=== PATIENT | male | born 1935 | race Caucasian/White ===

== ENCOUNTER 2017-03-16 23:22 | Inpatient (IN) | payer BC ==
[2017-03-17] MEDS ORDERED: SODIUM CHLORIDE 0.9% 1000 ML INFUS.BAG IV ONE (00:45)
[2017-03-17] MEDS ORDERED: morphine CARPU-JECT 2 MG/1 ML DISP.SYRIN IVPUSH ONE (00:46)
[2017-03-17] MEDS ORDERED: morphine CARPU-JECT 2 MG/1 ML DISP.SYRIN ONE (00:58)
[2017-03-17 01:04] LABS: URINE APPEARANCE CLEAR; URINE BILIRUBIN NEGATIVE (NEGATIVE); URINE COLOR LTYELLOW; URINE GLUCOSE (UA) 3+ (NEGATIVE); URINE KETONE TRACE (NEGATIVE); URINE LEUK ESTERASE NEGATIVE (NEGATIVE); URINE NITRITE NEGATIVE (NEGATIVE); URINE PROTEIN NEGATIVE (NEGATIVE); URINE UROBILINOGEN NEGATIVE E.U./dl (0.2-1.0)
[2017-03-17 01:08] LABS: BASOPHIL 0.4 % (0-2.0); EOSINOPHIL 0.1 % (0-4.5); MCH 28.2 pg (25.7-33.7); MCHC 32.5 g/dl (32.0-35.9); MEAN CELL VOLUME 86.7 fl (80-96); MEAN PLT VOLUME 8.3 fl (7.5-11.1); NEUTROPHILS 79.8 % (42.8-82.8); PLATELET COUNT 232 K/MM3 (134-434); RDW 13.1 % (11.9-15.9)
[2017-03-17 01:14] LABS: URINE BLOOD 2+ (NEGATIVE)
[2017-03-17 01:25] LABS: ALBUMIN 3.8 g/dl (3.4-5.0); ANION GAP 11 (8-16); BILIRUBIN,TOTAL 0.6 mg/dL (0.2-1.0); CO2 24 mmol/L (21-32); CREATININE 1.4 mg/dL (0.7-1.3); GLUCOSE,RANDOM 281 mg/dL (74-106); SGOT/AST 18 U/L (15-37); SGPT/ALT 26 U/L (12-78); TOT PROT 7.4 g/dl (6.4-8.2)
[2017-03-17 01:26] LABS: ALK PHOS 114 U/L (45-117); URINE RBC 4 /hpf (0-3); URINE WBC 1 /hpf (3-5)
--- NOTE | 2017-03-17 01:54 | PDOC ---
History of Present Illness - General Chief Complaint: Pain, Acute Stated Complaint: BACK PAIN Time Seen by Provider: 03/16/17 23:50 History Source: Patient Exam Limitations: No Limitations - History of Present Illness Initial Comments: 03/17/17 01:48 Patient is a 81 year old male with h/o kidney stone, DM, HTN, HLD, arthritis, c/ o left flank pain since 5 pm progressively worsening now 8/10, continuously pulsating. States no blood in the urine but it is dark. Took tylenol at 8 pm without relief of symptoms. He has nausea, no vomiting, no fever or chills. PMD: Androne URO: Figastsolar PMHX: as above, ALL: NKDA GENERAL/CONSTITUTIONAL: [No fever or chills. No weakness. No weight change.] HEAD, EYES, EARS, NOSE AND THROAT: [No change in vision. No ear pain or discharge. No sore throat.] CARDIOVASCULAR: [No chest pain or shortness of breath.] RESPIRATORY: [No cough, wheezing, or hemoptysis.] GASTROINTESTINAL: [No nausea, vomiting, diarrhea or constipation. No rectal bleeding.] GENITOURINARY: [No dysuria, frequency, or change in urination (+) flank pain] MUSCULOSKELETAL: (+) joint or muscle swelling or pain. No neck or back pain.] SKIN AND BREASTS: [No rash or easy bruising.] NEUROLOGIC: [No headache, vertigo, loss of consciousness, or loss of sensation.] PSYCHIATRIC: [No depression or anxiety.] ENDOCRINE: [No increased thirst. No abnormal weight change.] HEMATOLOGIC/LYMPHATIC: [No anemia, easy bleeding, or history of blood clots.] ALLERGIC/IMMUNOLOGIC: [No hives or skin allergy. No latex allergy.] GENERAL: [The patient is awake, alert, and fully oriented, in no acute distress. ] HEAD: [Normal with no signs of trauma.] EYES: [Pupils equal, round and reactive to light, extraocular movements intact, sclera anicteric, conjunctiva clear.] ENT: [Ears normal, nares patent, oropharynx clear without exudates. Moist mucous membranes.] NECK: [Normal range of motion, supple without lymphadenopathy, JVD, or masses.] LUNGS: [Breath sounds equal, clear to auscultation bilaterally. No wheezes, and no crackles.] HEART: [Regular rate and rhythm, normal S1 and S2 without murmur, rub.] ABDOMEN: [Soft, (+) tenderness in the LLQ, normoactive bowel sounds. No guarding, no rebound. No masses, (+) CVAT left EXTREMITIES: [Normal range of motion, no edema. No clubbing or cyanosis. No cords, erythema, or tenderness.] NEUROLOGICAL: [Cranial nerves II through XII grossly intact. Normal speech, normal gait.] PSYCH: [Normal mood, normal affect.] SKIN: [Warm, Dry, normal turgor, no rashes or lesions noted.] Past History - Past Medical History Allergies/Adverse Reactions: Allergies Allergy/AdvReac Type Severity Reaction Status Date / Time No Known Allergies Allergy Verified 03/16/17 23:31 Home Medications: Ambulatory Orders Diltiazem HCl [Tiazac] 300 mg PO DAILY 02/22/16 Ibuprofen 600 mg PO QID PRN #20 tablet 02/22/16 Lisinopril [Prinivil] 10 mg PO DAILY 02/22/16 Metformin HCl 500 mg PO BID 02/22/16 Ondansetron [Zofran *Odt*] 8 mg SL TID PRN #20 tab.rapdis 02/22/16 Simvastatin [Zocor -] 20 mg PO HS 02/22/16 Tamsulosin HCl [Flomax] 0.4 mg PO DAILY #14 capsule 02/22/16 Cardiac Disorders: Yes Diabetes: Yes HTN: Yes Hypercholesterolemia: Yes Kidney Stones: Yes - Psycho/Social/Smoking Cessation Hx Suicidal Ideation: No Smoking History: Never smoked Have you smoked in the past 12 months: No *Physical Exam - Vital Signs Last Vital Signs Temp Pulse Resp BP Pulse Ox 98 F 62 18 180/87 97 03/16/17 23:28 03/16/17 23:28 03/16/17 23:28 03/16/17 23:28 03/16/17 23:28 ED Treatment Course - LABORATORY CBC & Chemistry Diagram: 03/17/17 00:53 03/17/17 00:53 - ADDITIONAL ORDERS Additional order review: Laboratory Results 03/17/17 03/17/17 00:53 00:53 Sodium 134 L Potassium 4.6 Chloride 99 Carbon Dioxide 24 Anion Gap 11 BUN 24 H D Creatinine 1.4 H Creat Clearance w eGFR 48.52 Random Glucose 281 H D Calcium 9.0 Total Bilirubin 0.6 AST 18 D ALT 26 D Alkaline Phosphatase 114 D Total Protein 7.4 Albumin 3.8 Urine Color Ltyellow Urine Appearance Clear Urine pH 5.0 Urine Protein Negative Urine Glucose (UA) 3+ H Urine Ketones Trace H Urine Blood 2+ H Urine Nitrite Negative Urine Bilirubin Negative Urine Urobilinogen Negative Ur Leukocyte Esterase Negative Urine RBC 4 Urine WBC 1 03/17/17 00:53 RBC 4.49 MCV 86.7 MCHC 32.5 RDW 13.1 MPV 8.3 Neutrophils % 79.8 D Lymphocytes % 14.0 D Monocytes % 5.7 Eosinophils % 0.1 D Basophils % 0.4 - RADIOLOGY Radiology Studies Ordered: Category Date Time Status ABDOMEN & PELVIS CT W/O CONTR [CT] Stat CT Scan 03/17/17 00:47 Taken - Medications Given in the ED: ED Medications Discontinued Medications Generic Name Dose Route Start Last Admin Trade Name Freq PRN Reason Stop Dose Admin Morphine Sulfate 0.5 mg 03/17/17 00:46 03/17/17 01:02 Morphine Injection - IVPUSH 03/17/17 00:47 0.5 mg ONCE ONE Administration Medical Decision Making - Medical Decision Making 03/17/17 04:50 Patient is a 81 year old male with h/o kidney stone, DM, HTN, HLD, arthritis, c/ o left flank pain since 5 pm most consistent with renal colic. Will get labs, Dilaudid 0.5mg IV for pain, IVF 03/17/17 04:54 Laboratory Tests 03/17/17 03/17/17 03/17/17 00:53 00:53 00:53 WBC 14.0 H D Hgb 12.7 Hct 39.0 Plt Count 232 Sodium 134 L Potassium 4.6 Chloride 99 Carbon Dioxide 24 Anion Gap 11 BUN 24 H D Creatinine 1.4 H Random Glucose 281 H D Urine Color Ltyellow Urine Appearance Clear Urine pH 5.0 Ur Specific [place] Pending Urine Protein Negative Urine Glucose (UA) 3+ H Urine Ketones Trace H Urine Blood 2+ H Urine Nitrite Negative Urine Bilirubin Negative Urine Urobilinogen Negative Ur Leukocyte Esterase Negative Urine RBC 4 Urine WBC 1 Patient states still in pain but less will hold on meds for now ct abd Onsite Health Coach: ([email or web address]) Report Date: 03/17/2017 01:02:00 Report Status: Preliminary Begin of Report Content == Referring Physician: Patient Name: Leonel Cummings This is a preliminary report by imaging benefits sales consultant Exam: Noncontrast CT abdomen and pelvis Images: 505 Clinical indication: Left flank pain. Rule out stone. Findings: The lung bases are clear. The liver has a normal appearance. The gallbladder is unremarkable. The spleen and pancreas have a normal appearance. The adrenal glands are unremarkable. The right kidney has a normal unenhanced appearance. The left kidney is hydronephrotic with perinephric stranding. Proximal hydroureter is noted. An obstructing 8 x 7 mm calculus is present in the proximal left ureter (image 61). The gastrointestinal tract does not appear obstructed. No thickened or dilated bowel is seen. The appendix has a normal appearance. There is no mesenteric infiltration or free fluid. The urinary bladder, prostate and seminal vesicles are unremarkable. Tiny fat-containing left inguinal hernia is noted. No abdominal or pelvic adenopathy is seen. No lytic or blastic destructive osseous lesions are seen. Impression: Large obstructing calculus in the proximal left ureter. THIS DOCUMENT HAS BEEN ELECTRONICALLY SIGNED Chilango Forman M.D. 03/17/2017 04:55 OSMAN Felder Please call Imaging Forestry Biology Specialist [phone]) with questions 03/17/17 05:19 Case d/w with Dr. Yanick Richardson who will admit the patient to the hospital *DC/Admit/Observation/Transfer Diagnosis at time of Disposition: Renal colic on left side - Discharge Dispostion Admit: Yes - Referrals Referrals: Kevin Coleman MD [Primary Care Provider] -
[2017-03-17] MEDS: SODIUM CHLORIDE 1,000 ML IV SCH (08:06)
[2017-03-17] MEDS ORDERED: ACETAMINOPHEN 500 MG TABLET (FP) PO PRN (17:31)
[2017-03-17 19:08] VITALS: BMI 23.9
--- NOTE | 2017-03-17 20:55 | HP ---
Admitting History and Physical - Primary Care Physician PCP: Kevin Richardson - Admission Chief Complaint: left flank pain History of Present Illness: Pt. with Hx/p kidney stones, startes to have left flank pain yesterday during the day, got worse at night and came to er. He was found to have Left side hydronephrosis and ureterolithiasis. History Source: Patient Limitations to Obtaining History: No Limitations - Past Medical History Cardiovascular: Yes: HTN, Hyperlipdemia Gastrointestinal: Yes: GERD Renal/: Yes: Renal Calculi Musculoskeletal: Yes: Osteoarthritis (of both knees) Endocrine: Yes: Diabetes Mellitus - Smoking History Smoking history: Former smoker Have you smoked in the past 12 months: No If you are a former smoker, when did you quit?: 30 years ago - Alcohol/Substance Use Hx Alcohol Use: No Home Medications - Allergies Allergies/Adverse Reactions: Allergies Allergy/AdvReac Type Severity Reaction Status Date / Time No Known Allergies Allergy Verified 03/16/17 23:31 - Home Medications Home Medications: Ambulatory Orders Lisinopril [Prinivil] 10 mg PO DAILY 02/22/16 Metformin HCl 500 mg PO BID 02/22/16 Simvastatin [Zocor -] 20 mg PO HS 02/22/16 Acetaminophen [Pain Reliever] 500 mg PO Q6H PRN 03/17/17 Review of Systems - Review of Systems Constitutional: denies: Chills, Fever HENT: denies: Difficult Swallowing, Ear Discharge, Ear Pain, Epistaxis, Hearing Loss, Nasal Congestion Neck: denies: Pain on Movement, Stiffness, Tenderness Cardiovascular: denies: Chest Pain, Edema, Palpitations, Shortness of Breath Respiratory: denies: Cough, Hemoptysis, Wheezing Gastrointestinal: reports: Abdominal Pain (and left flank pain on and off). denies: Nausea, Vomiting Genitourinary: denies: Burning, Discharge, Dysuria Musculoskeletal: denies: Extremity Pain, Muscle Pain, Muscle Cramps Integumentary: denies: Erythema, Rash Neurological: denies: Change in LOC, Change in Speech, Confusion, Numbness, Tremors Endocrine: denies: Excessive Sweating, Intolerance to Cold Hematology/Lymphatic: denies: Easily Bruised, Excessive Bleeding Psychiatric: denies: Altered Sleep Pattern, Depression Physical Examination Vital Signs: Vital Signs Temperature 99 F 03/17/17 18:56 Pulse Rate 63 03/17/17 18:56 Respiratory Rate 20 03/17/17 18:56 Blood Pressure 146/80 03/17/17 18:56 O2 Sat by Pulse Oximetry (%) 97 03/17/17 16:50 Constitutional: Yes: No Distress, Calm Eyes: Yes: Conjunctiva Clear, EOM Intact, PERRL HENT: Yes: Normocephalic. No: Epistaxis, Rhinnorhea Neck: Yes: Trachea Midline. No: Lymphadenopathy Cardiovascular: Yes: Regular Rate and Rhythm, S1, S2 Respiratory: Yes: Regular, CTA Bilaterally. No: Rales Gastrointestinal: Yes: Normal Bowel Sounds, Soft. No: Palpable Mass, Tenderness ...Rectal Exam: Yes: Deferred Renal/: Yes: CVA Tenderness - Left. No: CVA Tenderness - Right Musculoskeletal: No: Back Pain, Joint Swelling Extremities: No: Cold, Cool Edema: No Integumentary: No: Erythema, Jaundice, Rash Neurological: Yes: Alert, Oriented, Other (symmetric motor and sensory function in UE/ LE/ Face) Psychiatric: Yes: Alert, Oriented Labs: reviewed Imaging - Results Cat Scan: Report Reviewed Problem List - Problems (1) Flank pain Code(s): R10.9 - UNSPECIFIED ABDOMINAL PAIN (2) Ureterolithiasis Code(s): N20.1 - CALCULUS OF URETER (3) Hydronephrosis Code(s): N13.30 - UNSPECIFIED HYDRONEPHROSIS (4) Nephrolithiasis Code(s): N20.0 - CALCULUS OF KIDNEY (5) Hypertension Code(s): I10 - ESSENTIAL (PRIMARY) HYPERTENSION (6) Diabetes mellitus Code(s): E11.9 - TYPE 2 DIABETES MELLITUS WITHOUT COMPLICATIONS Assessment/Plan Pain control IVF consult Cardio consult for clearance Hold Lisinopril. Monitor renal function AM labs
[2017-03-17] MEDS: ATORVASTATIN CA 10 MG TABLET (FP) PO SCH (21:32)
[2017-03-17] MEDS: metFORMIN HCL 500 MG TABLET (FP) PO SCH (21:32)
[2017-03-17] MEDS: morphine CARPU-JECT 2 MG/1 ML DISP.SYRIN IVPUSH PRN (22:22)
[2017-03-18] MEDS: SODIUM CHLORIDE 1,000 ML IV SCH ×2 (02:14→17:12)
[2017-03-18] MEDS: metFORMIN HCL 500 MG TABLET (FP) PO SCH ×2 (06:04→17:12)
[2017-03-18] MEDS: INSULIN SLIDING SCALE (NOVOLOG) 1 VIAL SQ SCH ×2 (06:06→17:42)
[2017-03-18 07:29] LABS: MCH 29.1 pg (25.7-33.7); MCHC 34.2 g/dl (32.0-35.9); MEAN CELL VOLUME 85.1 fl (80-96); MEAN PLT VOLUME 8.3 fl (7.5-11.1); PLATELET COUNT 199 K/MM3 (134-434); RDW 13.1 % (11.9-15.9); WHITE BLOOD COUNT 10.6 K/mm3 (4.0-10.0)
[2017-03-18 07:39] LABS: INR 1.16 (0.82-1.09); PROTHROMBIN TIME (PATIENT) 12.8 SEC (9.98-11.88)
[2017-03-18 08:04] LABS: ALK PHOS 78 U/L (45-117); ANION GAP 9 (8-16); BILIRUBIN,TOTAL 0.7 mg/dL (0.2-1.0); CALCIUM 8.2 mg/dL (8.5-10.1); CO2 25 mmol/L (21-32); CREATININE 1.3 mg/dL (0.7-1.3); GLUCOSE,RANDOM 196 mg/dL (74-106); SGOT/AST 13 U/L (15-37); SGPT/ALT 18 U/L (12-78)
[2017-03-18] MEDS: amLODIPine BESYLATE 2.5 MG TABLET (FP) PO SCH (10:00)
--- NOTE | 2017-03-18 10:24 | PN ---
Progress Note, Physician History of Present Illness: Pt. with flank/ abd pain, asked for pain medication twice since last night ( it helped him). Pt. w/o SOB, CP, palp, N, V. - Current Medication List Current Medications: Active Medications Acetaminophen (Tylenol -) 500 mg PO Q6H PRN PRN Reason: PAIN Amlodipine Besylate (Norvasc -) 2.5 mg PO DAILY [facility] Last Admin: 03/18/17 10:00 Dose: 2.5 mg Atorvastatin Calcium (Lipitor -) 10 mg PO HS [facility] Last Admin: 03/17/17 21:32 Dose: 10 mg Sodium Chloride (Normal Saline -) 1,000 mls @ 75 mls/hr IV ASDIR [facility] Last Admin: 03/18/17 02:14 Dose: 75 mls/hr Insulin Aspart (Novolog Vial Sliding Scale -) 1 vial SQ BIDAC TANNER PRN Reason: Protocol Last Admin: 03/18/17 06:06 Dose: 4 unit Metformin HCl (Glucophage -) 500 mg PO BIDI [facility] Last Admin: 03/18/17 06:04 Dose: 500 mg Morphine Sulfate (Morphine Injection -) 1 mg IVPUSH Q4H PRN PRN Reason: PAIN Last Admin: 03/17/17 22:22 Dose: 1 mg - Objective Vital Signs: Vital Signs Temperature 98.7 F 03/18/17 05:00 Pulse Rate 62 03/18/17 05:00 Respiratory Rate 20 03/18/17 05:00 Blood Pressure 146/68 03/18/17 05:00 O2 Sat by Pulse Oximetry (%) 95 03/17/17 21:00 Constitutional: Yes: No Distress, Calm Cardiovascular: Yes: Regular Rate and Rhythm, S1, S2 Respiratory: Yes: Regular, CTA Bilaterally. No: Rales Gastrointestinal: Yes: Normal Bowel Sounds, Soft. No: Tenderness Edema: No Neurological: Yes: Alert, Oriented Labs: CBC, BMP 03/18/17 06:00 03/18/17 06:00 INR, PTT INR 1.16 (0.82-1.09) H 03/18/17 06:00 Problem List - Problems (1) Flank pain Code(s): R10.9 - UNSPECIFIED ABDOMINAL PAIN (2) Ureterolithiasis Code(s): N20.1 - CALCULUS OF URETER (3) Hydronephrosis Code(s): N13.30 - UNSPECIFIED HYDRONEPHROSIS Qualifiers: Hydronephrosis type: unspecified Qualified Code(s): N13.30 - Unspecified hydronephrosis (4) Nephrolithiasis Code(s): N20.0 - CALCULUS OF KIDNEY (5) Hypertension Code(s): I10 - ESSENTIAL (PRIMARY) HYPERTENSION Qualifiers: Hypertension type: essential hypertension Qualified Code(s): I10 - Essential (primary) hypertension (6) Diabetes mellitus Code(s): E11.9 - TYPE 2 DIABETES MELLITUS WITHOUT COMPLICATIONS Qualifiers: Diabetes mellitus type: type 2 Diabetes mellitus complication status: without complication Diabetes mellitus fpc insulin use: without terminal block assembler use Qualified Code(s): E11.9 - Type 2 diabetes mellitus without complications Assessment/Plan Pain control IVF consult Cardio consult for clearance Hold Lisinopril. Monitor renal function AM labs
--- NOTE | 2017-03-18 12:35 | CON.CARD ---
Consult Consult Specialty:: Cardiology Referred by:: Dr. Richardson Reason for Consultation:: Cardiac evaluation - History of Present Illness Chief Complaint: Left flank pain History of Present Illness: Patient is an 81 year old male well known to me with underlying history of hypertension, hypercholesterolemia, type 2 diabetes mellitus and GERD who presents with left flank pain due to nephrolithiasis. He was found to have left side hydronephrosis and urethrolithisais. He denies chest pain, shortness of breath of palpitations. He denies fever or chills. He denies paroxysmal nocturnal dyspnea or orthopnea. He denies headache or lightheadedness. Cardiology consultation was called for further evaluation and for cardiac clearance. - History Source History Provided By: Patient, Medical Record Limitations to Obtaining History: No Limitations - Past Medical History Cardio/Vascular: Yes: HTN, Hyperlipdemia Gastrointestinal: Yes: GERD Renal/: Yes: Renal Calculi Musculoskeletal: Yes: Osteoarthritis (of both knees) Endocrine: Yes: Diabetes Mellitus - Alcohol/Substance Use Hx Alcohol Use: No History of Substance Use: reports: None - Smoking History Smoking history: Former smoker Have you smoked in the past 12 months: No If you are a former smoker, when did you quit?: 30 years ago Home Medications - Allergies Allergies/Adverse Reactions: Allergies Allergy/AdvReac Type Severity Reaction Status Date / Time No Known Allergies Allergy Verified 03/16/17 23:31 - Home Medications Home Medications: Ambulatory Orders Lisinopril [Prinivil] 10 mg PO DAILY 02/22/16 Metformin HCl 500 mg PO BID 02/22/16 Simvastatin [Zocor -] 20 mg PO HS 02/22/16 Acetaminophen [Pain Reliever] 500 mg PO Q6H PRN 03/17/17 Review of Systems - Review of Systems Constitutional: denies: Chills, Fever Cardiovascular: denies: Chest Pain, Palpitations, Shortness of Breath Respiratory: denies: Cough, Hemoptysis, Orthopnea, PND, SOB, SOB on Exertion Gastrointestinal: denies: Abdominal Pain, Constipation, Diarrhea, Melena, Nausea , Rectal Bleeding, Vomiting Genitourinary: reports: Flank Pain Musculoskeletal: denies: Joint Pain Neurological: denies: Dizziness, Headache, Seizure, Syncope, Unsteady Gait, Weakness Vital Signs: Vital Signs Temperature 98.7 F 03/18/17 05:00 Pulse Rate 62 03/18/17 05:00 Respiratory Rate 20 03/18/17 05:00 Blood Pressure 146/68 03/18/17 05:00 O2 Sat by Pulse Oximetry (%) 95 03/17/17 21:00 Neck: Yes: Supple Respiratory: Yes: Regular, CTA Bilaterally Gastrointestinal: Yes: Normal Bowel Sounds, Soft Cardiovascular: Yes: Regular Rate and Rhythm JVD: No Carotid Bruit: No PMI: Non-Displaced Heart Sounds: Yes: S1, S2. No: Gallop Murmur: No: Systolic Murmur, Diastolic Murmur Edema: No - Other Data Labs, Other Data: CBC, BMP 03/18/17 06:00 03/18/17 06:00 INR, PTT INR 1.16 (0.82-1.09) H 03/18/17 06:00 Imaging - Results Cat Scan: Report Reviewed (Abdominal CT shows large obstructing calculus in left proximal ureter) Problem List - Problems (1) Diabetes mellitus Code(s): E11.9 - TYPE 2 DIABETES MELLITUS WITHOUT COMPLICATIONS Qualifiers: Diabetes mellitus type: type 2 Diabetes mellitus complication status: without complication Diabetes mellitus intermediate insulin use: without intermediate use Qualified Code(s): E11.9 - Type 2 diabetes mellitus without complications (2) Hydronephrosis Code(s): N13.30 - UNSPECIFIED HYDRONEPHROSIS Qualifiers: Hydronephrosis type: unspecified Qualified Code(s): N13.30 - Unspecified hydronephrosis (3) Hypertension Code(s): I10 - ESSENTIAL (PRIMARY) HYPERTENSION Qualifiers: Hypertension type: essential hypertension Qualified Code(s): I10 - Essential (primary) hypertension (4) Renal colic on left side Code(s): N23 - UNSPECIFIED RENAL COLIC (5) Ureterolithiasis Code(s): N20.1 - CALCULUS OF URETER (6) Flank pain Code(s): R10.9 - UNSPECIFIED ABDOMINAL PAIN (7) Hypercholesterolemia Code(s): E78.00 - PURE HYPERCHOLESTEROLEMIA, UNSPECIFIED Assessment/Plan 1. Obstructing left ureter calculi with hydronephrosis 2. Hypertension 3. Hypercholesterolemia 4. Type 2 diabetes mellitus 5. GERD PLAN: 1. No absolute contraindication in proceeding with intervention in view of absence of ischemic symptoms, decompensated congestive heart failure or malignant arrhythmias. 2. Continue present medications including Norvasc and Lipitor Further plans are to follow Daniel Lees MD
[2017-03-18] MEDS: ATORVASTATIN CA 10 MG TABLET (FP) PO SCH (21:24)
[2017-03-18] MEDS: morphine CARPU-JECT 2 MG/1 ML DISP.SYRIN IVPUSH PRN (21:25)
[2017-03-19] MEDS: INSULIN SLIDING SCALE (NOVOLOG) 1 VIAL SQ SCH ×2 (06:16→16:49)
[2017-03-19] MEDS: metFORMIN HCL 500 MG TABLET (FP) PO SCH ×2 (06:16→16:49)
[2017-03-19 07:40] LABS: MCH 29.2 pg (25.7-33.7); MCHC 34.1 g/dl (32.0-35.9); MEAN CELL VOLUME 85.9 fl (80-96); MEAN PLT VOLUME 8.2 fl (7.5-11.1); PLATELET COUNT 200 K/MM3 (134-434); RDW 13.4 % (11.9-15.9); WHITE BLOOD COUNT 10.9 K/mm3 (4.0-10.0)
[2017-03-19 08:05] LABS: ANION GAP 10 (8-16); CALCIUM 8.2 mg/dL (8.5-10.1); CO2 23 mmol/L (21-32); CREATININE 1.2 mg/dL (0.7-1.3); GLUCOSE,RANDOM 202 mg/dL (74-106)
[2017-03-19] MEDS ORDERED: PT OWN MED DRAWER 7, Y5N ONE (09:25)
[2017-03-19] MEDS: amLODIPine BESYLATE 2.5 MG TABLET (FP) PO SCH (09:42)
[2017-03-19] MEDS: SODIUM CHLORIDE 1,000 ML IV SCH ×2 (09:42→16:49)
--- NOTE | 2017-03-19 11:16 | PN ---
Progress Note (short form) - Note Progress Note: trial of passage of stone, If uable patient is scheduled for ureteroscopic laser litho and stent at 8am
--- NOTE | 2017-03-19 13:16 | PN ---
Progress Note, Physician History of Present Illness: Denies left flank pain and hematuria. - Current Medication List Current Medications: Active Medications Acetaminophen (Tylenol -) 500 mg PO Q6H PRN PRN Reason: PAIN Amlodipine Besylate (Norvasc -) 2.5 mg PO DAILY [facility] Last Admin: 03/19/17 09:42 Dose: 2.5 mg Atorvastatin Calcium (Lipitor -) 10 mg PO HS [facility] Last Admin: 03/18/17 21:24 Dose: 10 mg Sodium Chloride (Normal Saline -) 1,000 mls @ 75 mls/hr IV ASDIR [facility] Last Admin: 03/19/17 09:42 Dose: Not Given Insulin Aspart (Novolog Vial Sliding Scale -) 1 vial SQ BIDAC TANNER PRN Reason: Protocol Last Admin: 03/19/17 06:16 Dose: Not Given Metformin HCl (Glucophage -) 500 mg PO BIDI [facility] Last Admin: 03/19/17 06:16 Dose: 500 mg Morphine Sulfate (Morphine Injection -) 1 mg IVPUSH Q4H PRN PRN Reason: PAIN Last Admin: 03/18/17 21:25 Dose: 1 mg - Objective Vital Signs: Vital Signs Temperature 98.2 F 03/19/17 09:00 Pulse Rate 66 03/19/17 09:00 Respiratory Rate 18 03/19/17 09:00 Blood Pressure 147/74 03/19/17 09:00 O2 Sat by Pulse Oximetry (%) 96 03/19/17 09:00 Constitutional: Yes: No Distress, Calm, Thin Neck: Yes: Supple Respiratory: Yes: Regular, CTA Bilaterally Gastrointestinal: Yes: Normal Bowel Sounds, Soft Edema: No Labs: CBC, BMP 03/19/17 06:00 03/19/17 06:00 INR, PTT INR 1.16 (0.82-1.09) H 03/18/17 06:00 Problem List - Problems (1) Hydronephrosis Code(s): N13.30 - UNSPECIFIED HYDRONEPHROSIS Qualifiers: Hydronephrosis type: unspecified Qualified Code(s): N13.30 - Unspecified hydronephrosis (2) Hypercholesterolemia Code(s): E78.00 - PURE HYPERCHOLESTEROLEMIA, UNSPECIFIED (3) Hypertension Code(s): I10 - ESSENTIAL (PRIMARY) HYPERTENSION Qualifiers: Hypertension type: essential hypertension Qualified Code(s): I10 - Essential (primary) hypertension (4) Nephrolithiasis Code(s): N20.0 - CALCULUS OF KIDNEY (5) Renal colic on left side Code(s): N23 - UNSPECIFIED RENAL COLIC (6) Ureterolithiasis Code(s): N20.1 - CALCULUS OF URETER (7) Flank pain Code(s): R10.9 - UNSPECIFIED ABDOMINAL PAIN Assessment/Plan 1. Obstructing left ureter calculi with hydronephrosis 2. Hypertension 3. Hypercholesterolemia 4. Type 2 diabetes mellitus 5. GERD PLAN: 1. No absolute contraindication in proceeding with intervention in view of absence of ischemic symptoms, decompensated congestive heart failure or malignant arrhythmias. 2. Continue present medications including Norvasc 2.5 qd and Lipitor 10 qhd 3. recommends trial of passage of stone, if unable patient is scheduled for ureteroscopic laser litho and stent at 8am 03/20/17
--- NOTE | 2017-03-19 14:52 | CON.GU ---
Consult Consult Specialty:: urology Referred by:: medicine Reason for Consultation:: ureteral stone - History of Present Illness Chief Complaint: flank pain History of Present Illness: 81 year old male with history of kidney stone who presents with left sided flank pain. CT scan reveals an 8mm ureteral stone with hydro. No signs of sepsis. He is currently pain free. He has a history of stones in the past. - History Source History Provided By: Patient, Medical Record Limitations to Obtaining History: No Limitations - Past Medical History Cardio/Vascular: Yes: HTN, Hyperlipdemia Gastrointestinal: Yes: GERD Renal/: Yes: Renal Calculi Musculoskeletal: Yes: Osteoarthritis (of both knees) Endocrine: Yes: Diabetes Mellitus - Alcohol/Substance Use Hx Alcohol Use: No History of Substance Use: reports: None - Smoking History Smoking history: Former smoker Have you smoked in the past 12 months: No If you are a former smoker, when did you quit?: 30 years ago Home Medications - Allergies Allergies/Adverse Reactions: Allergies Allergy/AdvReac Type Severity Reaction Status Date / Time No Known Allergies Allergy Verified 03/16/17 23:31 - Home Medications Home Medications: Ambulatory Orders Lisinopril [Prinivil] 10 mg PO DAILY 02/22/16 Metformin HCl 500 mg PO BID 02/22/16 Simvastatin [Zocor -] 20 mg PO HS 02/22/16 Acetaminophen [Pain Reliever] 500 mg PO Q6H PRN 03/17/17 Review of Systems - Review of Systems Genitourinary: reports: Flank Pain Physical Exam- Vital Signs: Vital Signs Temperature 98.2 F 03/19/17 09:00 Pulse Rate 66 03/19/17 09:00 Respiratory Rate 18 03/19/17 09:00 Blood Pressure 147/74 03/19/17 09:00 O2 Sat by Pulse Oximetry (%) 96 03/19/17 09:00 Renal/: No: Bladder Distention, CVA Tenderness - Left, CVA Tenderness - Right , Sanchez Present Labs: CBC, BMP 03/19/17 06:00 03/19/17 06:00 Imaging - Results Cat Scan: Report Reviewed Problem List - Problems (1) Ureterolithiasis Assessment/Plan: trial of passage, if he does not, he is scheduled for laser lithotripsy at 0730 on 03/20/17 Code(s): N20.1 - CALCULUS OF URETER
--- NOTE | 2017-03-19 15:11 | PN ---
Progress Note, Physician History of Present Illness: Pt. with flank/ abd pain, asked for pain medication twice since last night ( it helped him). Pt. w/o SOB, CP, palp, N, V. - Current Medication List Current Medications: Active Medications Acetaminophen (Tylenol -) 500 mg PO Q6H PRN PRN Reason: PAIN Amlodipine Besylate (Norvasc -) 2.5 mg PO DAILY [facility] Last Admin: 03/19/17 09:42 Dose: 2.5 mg Atorvastatin Calcium (Lipitor -) 10 mg PO HS [facility] Last Admin: 03/18/17 21:24 Dose: 10 mg Sodium Chloride (Normal Saline -) 1,000 mls @ 75 mls/hr IV ASDIR [facility] Last Admin: 03/19/17 09:42 Dose: Not Given Insulin Aspart (Novolog Vial Sliding Scale -) 1 vial SQ BIDAC TANNER PRN Reason: Protocol Last Admin: 03/19/17 06:16 Dose: Not Given Metformin HCl (Glucophage -) 500 mg PO BIDI [facility] Last Admin: 03/19/17 06:16 Dose: 500 mg Morphine Sulfate (Morphine Injection -) 1 mg IVPUSH Q4H PRN PRN Reason: PAIN Last Admin: 03/18/17 21:25 Dose: 1 mg - Objective Vital Signs: Vital Signs Temperature 98.2 F 03/19/17 09:00 Pulse Rate 66 03/19/17 09:00 Respiratory Rate 18 03/19/17 09:00 Blood Pressure 147/74 03/19/17 09:00 O2 Sat by Pulse Oximetry (%) 96 03/19/17 09:00 Constitutional: Yes: No Distress, Calm Cardiovascular: Yes: Regular Rate and Rhythm, S1, S2 Respiratory: Yes: Regular, CTA Bilaterally. No: Rales Gastrointestinal: Yes: Normal Bowel Sounds, Soft. No: Tenderness Edema: No Neurological: Yes: Alert, Oriented Labs: CBC, BMP 03/19/17 06:00 03/19/17 06:00 INR, PTT INR 1.16 (0.82-1.09) H 03/18/17 06:00 Problem List - Problems (1) Flank pain Code(s): R10.9 - UNSPECIFIED ABDOMINAL PAIN (2) Ureterolithiasis Code(s): N20.1 - CALCULUS OF URETER (3) Hydronephrosis Code(s): N13.30 - UNSPECIFIED HYDRONEPHROSIS Qualifiers: Hydronephrosis type: unspecified Qualified Code(s): N13.30 - Unspecified hydronephrosis (4) Nephrolithiasis Code(s): N20.0 - CALCULUS OF KIDNEY (5) Hypertension Code(s): I10 - ESSENTIAL (PRIMARY) HYPERTENSION Qualifiers: Hypertension type: essential hypertension Qualified Code(s): I10 - Essential (primary) hypertension (6) Diabetes mellitus Code(s): E11.9 - TYPE 2 DIABETES MELLITUS WITHOUT COMPLICATIONS Qualifiers: Diabetes mellitus type: type 2 Diabetes mellitus complication status: without complication Diabetes mellitus residential insulin use: without termite control servicer use Qualified Code(s): E11.9 - Type 2 diabetes mellitus without complications Assessment/Plan Pain control IVF consult Cardio consult for clearance Hold Lisinopril. Monitor renal function for OR in AM AM labs
[2017-03-19] MEDS ORDERED: ONDANSETRON 4 MG/2 ML VIAL IVPB PRN (19:26)
[2017-03-19] MEDS ORDERED: POLYETHYLENE GLYCOL 3350 119 GM BTL PO ONE (19:30)
[2017-03-19] MEDS: ATORVASTATIN CA 10 MG TABLET (FP) PO SCH (21:23)
[2017-03-19] MEDS: morphine CARPU-JECT 2 MG/1 ML DISP.SYRIN IVPUSH PRN (23:34)
[2017-03-20] MEDS: morphine CARPU-JECT 2 MG/1 ML DISP.SYRIN IVPUSH PRN (03:44)
[2017-03-20] MEDS: metFORMIN HCL 500 MG TABLET (FP) PO SCH (06:25)
[2017-03-20] MEDS: INSULIN SLIDING SCALE (NOVOLOG) 1 VIAL SQ SCH (06:26)
[2017-03-20 07:28] LABS: MCH 29.2 pg (25.7-33.7); MEAN CELL VOLUME 85.7 fl (80-96); MEAN PLT VOLUME 8.1 fl (7.5-11.1); PLATELET COUNT 215 K/MM3 (134-434); WHITE BLOOD COUNT 11.2 K/mm3 (4.0-10.0)
[2017-03-20] MEDS ORDERED: PROPOFOL 20 ML ONE (07:44)
[2017-03-20 07:49] LABS: ANION GAP 10 (8-16); CO2 23 mmol/L (21-32); GLUCOSE,RANDOM 167 mg/dL (74-106)
[2017-03-20 07:52] LABS: CREATININE 1.1 mg/dL (0.7-1.3)
[2017-03-20] MEDS ORDERED: ceFAZolin SODIUM 1 GM VIAL IVPB ONE (08:00)
[2017-03-20] MEDS ORDERED: IOHEXOL 300 MG/ML INFUS..BTL IJ ONE (08:05)
[2017-03-20] MEDS ORDERED: DEXAMETHASONE SOD PHOSPHATE 4 MG/1 ML VIAL ONE (08:13)
--- NOTE | 2017-03-20 08:39 | OP ---
Operative Note - Note: Operative Date: 03/20/17 Pre-Operative Diagnosis: left ureteral stone Operation: left ULL stent Surgeon: Addison Macedo
[2017-03-20] MEDS ORDERED: SODIUM CHLORIDE 1,000 ML IV SCH (08:41)
[2017-03-20] MEDS ORDERED: DEXTROSE 5%-0.45% SALINE 1,000 ML IV SCH ×2 (08:45→09:30)
[2017-03-20] MEDS ORDERED: ONDANSETRON 4 MG/2 ML VIAL IVPUSH PRN (08:51)
[2017-03-20] MEDS ORDERED: LACTATED RINGERS SOLUTION 1,000 ML IV SCH (09:00)
[2017-03-20] MEDS ORDERED: ACETAMINOPHEN 500 MG TABLET (FP) PO PRN (09:10)
[2017-03-20] MEDS ORDERED: morphine CARPU-JECT 2 MG/1 ML DISP.SYRIN IVPUSH PRN (09:20)
[2017-03-20] MEDS ORDERED: amLODIPine BESYLATE 2.5 MG TABLET (FP) PO SCH (10:00)
[2017-03-20] MEDS ORDERED: oxyCODONE HCL 5 MG TABLET PO PRN (10:19)
[2017-03-20] MEDS ORDERED: OXYCODONE/APAP 5/325MG COMBO TABLET PO PRN (10:19)
[2017-03-20] MEDS ORDERED: ACETAMINOPHEN 325 MG TABLET (FP) PO PRN (10:19)
--- NOTE | 2017-03-20 14:23 | OP ---
DATE OF OPERATION: 03/20/2017 SURGEON: Addison Macedo MD ANESTHESIA: General. ANESTHESIOLOGIST: FINDINGS: A large stone in the upper left ureter and hydronephrosis. STENT: A 6 x 24 double-J ureteral stent. PROCEDURE: Cystoscopy, left ureteroscopy, laser lithotripsy and left ureteral stent placement. PREOPERATIVE INDICATIONS: The patient is an 81-year-old male who comes in with an 8-mm stone obstructing his left kidney, resting in the upper ureter. He comes to the OR. OPERATION: The patient was brought to the OR, placed on the table in supine position, given general anesthesia and IV antibiotics, and placed in the modified lithotomy position. The groin was prepped and draped sterilely. Cystoscopy was performed. The urethra was normal. The prostate was enlarged. The bladder itself had some trabeculations but no tumors or stones were seen. The left UO was seen and a wire was placed up into the left kidney. A -[place] dual-lumen catheter was placed to dilate the ureter, and a second wire was placed. Over the second wire, a flexible ureteroscope was passed. A stone was seen in the upper ureter. Using a holmium laser fiber, the stone was broken up into small pieces. No other stones were seen in the kidney or along the course of the ureter. Over the remaining wire, a 6 x 24 double-J ureteral stent was placed with one loop in the bladder and one loop in the kidney. The bladder was emptied. The patient was awakened. Bradford [id number]
[2017-03-20] MEDS ORDERED: ONDANSETRON 4 MG/2 ML VIAL IVPB PRN (14:53)
[2017-03-20] MEDS ORDERED: INSULIN SLIDING SCALE (NOVOLOG) 1 VIAL SQ SCH (16:30)
[2017-03-20] MEDS ORDERED: metFORMIN HCL 500 MG TABLET (FP) PO SCH (16:30)
--- NOTE | 2017-03-20 18:03 | DS ---
Physical Examination Vital Signs: Vital Signs Temperature 98.4 F 03/20/17 15:23 Pulse Rate 68 03/20/17 15:23 Respiratory Rate 20 03/20/17 15:23 Blood Pressure 135/66 03/20/17 15:23 O2 Sat by Pulse Oximetry (%) 96 03/20/17 09:30 Findings/Remarks: Pt w/o SOB, CP, N, V, ABD PAIN. Pt is s/p laser lithotripsy, left ureteral stent placement Constitutional: Yes: No Distress, Calm Cardiovascular: Yes: Regular Rate and Rhythm, S1, S2 Respiratory: Yes: Regular, CTA Bilaterally. No: Rales Gastrointestinal: Yes: Normal Bowel Sounds, Soft, Tenderness Edema: No Neurological: Yes: Alert, Oriented Labs: CBC, BMP 03/20/17 06:00 03/20/17 06:00 Discharge Summary Reason For Visit: RENAL COLIC ON LEFT SIDE Current Active Problems Diabetes mellitus (Acute) Hydronephrosis (Acute) Hypercholesterolemia (Acute) Hypertension (Acute) Nephrolithiasis (Acute) Renal colic on left side (Acute) Ureterolithiasis (Acute) Procedures: Principal: Abd/pelvis CTscan. Laser lithotripsy, Left ureteral stent placement. Hospital Course: Pt came to ER c/o left flank pain. On Abd/Pelvis CT scan it was noticed to have nephrolithiasis and left hydronephrosis with uretherolithiasis. Pt was started on IVF, pain medication, consult was called. Pt underwent laser lithotripsy, left ureteral stent placement. Pt to be DC'ed home with f/u next week. Condition: Good - Instructions Diet, Activity, Other Instructions: Resume ADA, Low salt, low cholesterol diet Referrals: Kevin Coleman MD [Staff Physician] - Addison Macedo MD [Staff Physician] - (next week) Kevin Richardson MD [Primary Care Provider] - (in 1 to 2 weeks) Disposition: HOME - Home Medications Comprehensive Discharge Medication List: Ambulatory Orders This list might be accurate. Lisinopril [Prinivil] 10 mg PO DAILY 02/22/16 Metformin HCl 500 mg PO BID 02/22/16 Simvastatin [Zocor -] 20 mg PO HS 02/22/16 Acetaminophen [Pain Reliever] 500 mg PO Q6H PRN 03/17/17
[2017-03-20 18:14] VITALS: BP 140/61; PULSE 64; TEMP 97.6
[2017-03-20] MEDS ORDERED: INSULIN (NOVOLOG) ASPART 100 UNITS/ML 10ML VIAL ONE (18:32)
[2017-03-20] MEDS ORDERED: ATORVASTATIN CA 10 MG TABLET (FP) PO SCH (22:00)
== END 2017-03-20 21:01 | disposition home or self-care (01) | DRG 694 ==
LOC: JER 23:22 → JERBED 03-17 05:23 → J7W 03-17 18:27
PROVIDERS: ADMIT Specialist; ATTEND Specialist
PROC: 0T778DZ Dilation of Left Ureter with Intraluminal Device, Via Natural or Artificial Opening Endoscopic (ICD-10-PCS; principal; 2017-03-20 07:30)
PROC: 0TF78ZZ Fragmentation in Left Ureter, Via Natural or Artificial Opening Endoscopic (ICD-10-PCS; 2017-03-20 07:30)
DX: N13.2 Hydronephrosis with renal and ureteral calculous obstruction (principal); Z87.442 Personal history of urinary calculi; I10 Essential (primary) hypertension; E78.5 Hyperlipidemia, unspecified; K21.9 Gastro-esophageal reflux disease without esophagitis; M17.0 Bilateral primary osteoarthritis of knee
CPT/HCPCS: 36415; 74176-TC; 76000-TC; 80048; 80053; 81003; 81015; 85025; 85027; 85610; 94760; 99283-25